=== PATIENT | male | born 1950 | race Asian ===

== ENCOUNTER 2022-07-07 14:48 | Inpatient (IN) | payer OTHER ==
[~2022-07-07] VITALS: Ht 162.6 cm; Wt 55.3 kg
[2022-07-07 15:00] VITALS: BP 138/91
[2022-07-07] MEDS ORDERED: DEXTROSE 50%-WATER 25 GM/50 ML SYRINGE IVP PRN (17:00)
[2022-07-07] MEDS ORDERED: PNEUMOCOCCAL VACCINE POLYVALENT 0.5 ML VIAL [PPSV23] IM. ONE (17:15)
[2022-07-07] MEDS: INSULIN LISPRO 100 UNITS/ML SQ PRN (18:30)
[2022-07-07 20:02] LABS: GLUCOMETER DEV NAME(LOC) 2WR.2B; GLUCOSE,POINT OF CARE 156 MG/DL (70-110)
[2022-07-07 20:12] VITALS: BP 138/87
[2022-07-07] MEDS: ATORVASTATIN CALCIUM 40 MG TABLET PO SCH (21:03)
[2022-07-07] MEDS: DOCUSATE SODIUM 100 MG CAPSULE PO SCH (21:03)
[2022-07-07] MEDS: SENNOSIDES 8.6 MG TABLET PO SCH (21:03)
[2022-07-07 21:11] LABS: GLUCOMETER DEV NAME(LOC) 2WR.1C; GLUCOSE,POINT OF CARE 159 MG/DL (70-110)
[2022-07-07] MEDS: ChlorproMAZINE HCL 25 MG TABLET PO PRN (21:15)
[2022-07-08 00:54] VITALS: BP 149/83
[2022-07-08] MEDS: HYDROCODONE/ACETAMINOPHEN 5-325 MG TABLET PO PRN (00:54)
[2022-07-08 07:01] LABS: BASOPHILS % (AUTO) 0.4 % (0.0-2.0); EOSINOPHILS % (AUTO) 1.7 % (1.0-6.0); HEMATOCRIT 45.9 % (41-53); HEMOGLOBIN 15.4 g/dL (13.5-17.5); LYMPHOCYTES # (AUTO) 1.8 K/uL (1.0-4.8); LYMPHOCYTES % (AUTO) 18.7 % (22.0-44.0); MEAN CORPUSCULAR HEMOGLOBIN 30.9 pg (26.0-34.0); MEAN CORPUSCULAR HGB CONC 33.5 G/dL (31.0-37.0); MEAN CORPUSCULAR VOLUME 92 fL (80-100); MONOCYTES % (AUTO) 10.2 % (2.0-9.0); NEUTROPHILS # (AUTO) 6.5 K/uL (1.8-7.7); PLATELET COUNT (AUTO) 222 K/uL (150-450); RED BLOOD CELL COUNT(AUTO) 4.99 MIL/uL (4.50-5.90); RED CELL DISTRIBUTION WIDTH 15.2 % (11.5-14.5)
[2022-07-08 07:13] LABS: ALANINE AMINOTRANSFERASE 24 U/L (12-78); ALKALINE PHOSPHATASE 75 U/L (46-116); ANION GAP 10 mmol/L (8-16); ASPARTATE AMINOTRANSFERASE 40 U/L (15-37); BILIRUBIN,TOTAL 0.9 mg/dL (0.1-1.0); CALCIUM, TOTAL 8.7 mg/dL (8.8-10.5); CARBON DIOXIDE 23 mmol/L (22-29); CHLORIDE 102 mmol/L (98-107); GLOMERULAR FILTR. RATE CALC > 60 mL/min (>60); GLUCOSE,RANDOM 152 mg/dL (70-110); POTASSIUM 4.4 mmol/L (3.5-5.1); SODIUM SERUM 135 mmol/L (136-145); TOTAL PROTEIN, SERUM 7.7 g/dL (6.4-8.2)
[2022-07-08] MEDS: DOCUSATE SODIUM 100 MG CAPSULE PO SCH ×3 (10:03→21:00)
[2022-07-08] MEDS: LISINOPRIL 20 MG TABLET PO SCH (10:03)
[2022-07-08] MEDS: CLOPIDOGREL BISULFATE 75 MG TABLET PO SCH (10:03)
[2022-07-08] MEDS: ASPIRIN 81 MG CHEWABLE TABLET PO SCH (10:04)
[2022-07-08] MEDS: INSULIN LISPRO 100 UNITS/ML SQ PRN ×2 (10:37→21:05)
[2022-07-08 12:51] LABS: GLUCOMETER DEV NAME(LOC) 2WR.1C; GLUCOSE,POINT OF CARE 169 MG/DL (70-110)
[2022-07-08 13:16] LABS: GLUCOMETER DEV NAME(LOC) 2WR.2B; GLUCOSE,POINT OF CARE 161 MG/DL (70-110)
[2022-07-08 15:21] VITALS: BP 126/79
[2022-07-08 18:01] LABS: GLUCOMETER DEV NAME(LOC) 2WR.2B; GLUCOSE,POINT OF CARE 135 MG/DL (70-110)
[2022-07-08 20:29] VITALS: BP 132/75
[2022-07-08] MEDS: SENNOSIDES 8.6 MG TABLET PO SCH (20:55)
[2022-07-08] MEDS: ATORVASTATIN CALCIUM 40 MG TABLET PO SCH (20:55)
[2022-07-08] MEDS: ONDANSETRON HCL 4 MG TABLET PO PRN (20:55)
[2022-07-08] MEDS: ETHYL ALCOHOL 62% ANTISEPTIC NASAL SANITIZER 0.6 ML AMPUL NASAL SCH (20:56)
[2022-07-08] MEDS: ChlorproMAZINE HCL 25 MG TABLET PO PRN (23:41)
[2022-07-08] MEDS: MELATONIN 3 MG TABLET PO PRN (23:41)
[2022-07-09 04:41] LABS: GLUCOMETER DEV NAME(LOC) 2WR.2B; GLUCOSE,POINT OF CARE 176 MG/DL (70-110)
[2022-07-09 06:46] LABS: GLUCOMETER DEV NAME(LOC) 2WR.2B; GLUCOSE,POINT OF CARE 177 MG/DL (70-110)
[2022-07-09 08:05] VITALS: BP 125/80
[2022-07-09] MEDS: ETHYL ALCOHOL 62% ANTISEPTIC NASAL SANITIZER 0.6 ML AMPUL NASAL SCH ×2 (08:18→20:49)
[2022-07-09] MEDS: DOCUSATE SODIUM 100 MG CAPSULE PO SCH ×3 (08:19→21:00)
[2022-07-09] MEDS: LISINOPRIL 20 MG TABLET PO SCH (08:19)
[2022-07-09] MEDS: ASPIRIN 81 MG CHEWABLE TABLET PO SCH (08:19)
[2022-07-09] MEDS: CLOPIDOGREL BISULFATE 75 MG TABLET PO SCH (08:19)
[2022-07-09] MEDS: INSULIN LISPRO 100 UNITS/ML SQ PRN ×3 (08:21→17:10)
[2022-07-09] MEDS: HYDROCODONE/ACETAMINOPHEN 5-325 MG TABLET PO PRN (08:25)
[2022-07-09 14:21] LABS: GLUCOMETER DEV NAME(LOC) 2WR.2B; GLUCOSE,POINT OF CARE 167 MG/DL (70-110)
[2022-07-09 18:41] LABS: GLUCOMETER DEV NAME(LOC) 2WR.1C; GLUCOSE,POINT OF CARE 141 MG/DL (70-110)
[2022-07-09 20:00] VITALS: BP 140/81
[2022-07-09] MEDS: ChlorproMAZINE HCL 25 MG TABLET PO PRN (20:48)
[2022-07-09] MEDS: MELATONIN 3 MG TABLET PO PRN (20:48)
[2022-07-09] MEDS: ATORVASTATIN CALCIUM 40 MG TABLET PO SCH (20:48)
[2022-07-09] MEDS: SENNOSIDES 8.6 MG TABLET PO SCH ×2 (20:48→21:00)
[2022-07-09 23:31] LABS: GLUCOMETER DEV NAME(LOC) 2WR.1C; GLUCOSE,POINT OF CARE 128 MG/DL (70-110)
[2022-07-09] MEDS ORDERED: LISI-894 PO (23:49)
[2022-07-09] MEDS ORDERED: ATOR10TA PO (23:49)
[2022-07-09] MEDS ORDERED: GLIP10TA10 PO (23:49)
[2022-07-09] MEDS ORDERED: METF-1211 PO (23:49)
[2022-07-09] MEDS ORDERED: CHOL200059 PO (23:49)
[2022-07-10] MEDS: POLYETHYLENE GLYCOL 3350 17 GM PACKET PO PRN ×2 (03:15→17:11)
[2022-07-10 04:34] VITALS: BP 163/95
[2022-07-10 05:14] VITALS: BP 127/63
[2022-07-10 07:11] LABS: GLUCOMETER DEV NAME(LOC) 2WR.2B; GLUCOSE,POINT OF CARE 191 MG/DL (70-110)
[2022-07-10 08:10] VITALS: BP 140/75
[2022-07-10] MEDS ORDERED: FAMOTIDINE 20 MG TABLET PO SCH (09:00)
[2022-07-10] MEDS: ETHYL ALCOHOL 62% ANTISEPTIC NASAL SANITIZER 0.6 ML AMPUL NASAL SCH ×2 (09:01→20:40)
[2022-07-10] MEDS: ASPIRIN 81 MG CHEWABLE TABLET PO SCH ×2 (09:01→15:16)
[2022-07-10] MEDS: CLOPIDOGREL BISULFATE 75 MG TABLET PO SCH ×2 (09:01→15:16)
[2022-07-10] MEDS: DOCUSATE SODIUM 100 MG CAPSULE PO SCH ×2 (09:01→20:41)
[2022-07-10] MEDS: LISINOPRIL 20 MG TABLET PO SCH (09:01)
[2022-07-10] MEDS: INSULIN LISPRO 100 UNITS/ML SQ PRN ×3 (09:04→17:09)
[2022-07-10 15:42] LABS: GLUCOMETER DEV NAME(LOC) 2WR.2B; GLUCOSE,POINT OF CARE 195 MG/DL (70-110)
[2022-07-10] MEDS: ONDANSETRON HCL 4 MG TABLET PO PRN (16:30)
[2022-07-10 17:22] LABS: GLUCOMETER DEV NAME(LOC) 2WR.1C; GLUCOSE,POINT OF CARE 149 MG/DL (70-110)
[2022-07-10 20:00] VITALS: BP 132/76
[2022-07-10] MEDS: ATORVASTATIN CALCIUM 40 MG TABLET PO SCH (20:41)
[2022-07-10] MEDS: MELATONIN 3 MG TABLET PO PRN (20:41)
[2022-07-10] MEDS: PANTOPRAZOLE SODIUM 40 MG DR TABLET PO SCH (20:41)
[2022-07-10] MEDS: SENNOSIDES 8.6 MG TABLET PO SCH (20:41)
[2022-07-10 21:32] LABS: GLUCOMETER DEV NAME(LOC) 2WR.1C; GLUCOSE,POINT OF CARE 132 MG/DL (70-110)
[2022-07-11 07:01] LABS: GLUCOMETER DEV NAME(LOC) 2WR.1C; GLUCOSE,POINT OF CARE 133 MG/DL (70-110)
[2022-07-11 07:47] LABS: BASOPHILS % (AUTO) 0.5 % (0.0-2.0); EOSINOPHILS % (AUTO) 4.3 % (1.0-6.0); HEMATOCRIT 44.4 % (41-53); HEMOGLOBIN 14.8 g/dL (13.5-17.5); LYMPHOCYTES # (AUTO) 1.6 K/uL (1.0-4.8); LYMPHOCYTES % (AUTO) 16.1 % (22.0-44.0); MEAN CORPUSCULAR HEMOGLOBIN 30.6 pg (26.0-34.0); MEAN CORPUSCULAR HGB CONC 33.4 G/dL (31.0-37.0); MEAN CORPUSCULAR VOLUME 92 fL (80-100); MONOCYTES % (AUTO) 10.6 % (2.0-9.0); NEUTROPHILS # (AUTO) 6.7 K/uL (1.8-7.7); NEUTROPHILS % (AUTO) 68.5 % (40.0-70.0); PLATELET COUNT (AUTO) 266 K/uL (150-450); RED BLOOD CELL COUNT(AUTO) 4.85 MIL/uL (4.50-5.90); RED CELL DISTRIBUTION WIDTH 14.5 % (11.5-14.5)
[2022-07-11 08:05] VITALS: BP 129/77
[2022-07-11 08:07] LABS: ANION GAP 9 mmol/L (8-16); CALCIUM, TOTAL 8.5 mg/dL (8.8-10.5); CARBON DIOXIDE 25 mmol/L (22-29); CHLORIDE 101 mmol/L (98-107); CREATININE 0.86 mg/dL (0.60-1.30); GLOMERULAR FILTR. RATE CALC > 60 mL/min (>60); GLUCOSE,RANDOM 145 mg/dL (70-110); SODIUM SERUM 135 mmol/L (136-145)
[2022-07-11] MEDS: DOCUSATE SODIUM 100 MG CAPSULE PO SCH ×3 (09:00→21:00)
[2022-07-11] MEDS: LISINOPRIL 20 MG TABLET PO SCH (09:00)
[2022-07-11] MEDS: ASPIRIN 81 MG CHEWABLE TABLET PO SCH (09:00)
[2022-07-11] MEDS: CLOPIDOGREL BISULFATE 75 MG TABLET PO SCH (09:00)
[2022-07-11] MEDS: PANTOPRAZOLE SODIUM 40 MG DR TABLET PO SCH ×2 (10:41→20:30)
[2022-07-11] MEDS: ETHYL ALCOHOL 62% ANTISEPTIC NASAL SANITIZER 0.6 ML AMPUL NASAL SCH ×2 (10:50→20:30)
[2022-07-11 12:36] LABS: GLUCOMETER DEV NAME(LOC) 2WR.2B; GLUCOSE,POINT OF CARE 149 MG/DL (70-110)
[2022-07-11 17:06] LABS: GLUCOMETER DEV NAME(LOC) 2WR.1C; GLUCOSE,POINT OF CARE 195 MG/DL (70-110)
[2022-07-11] MEDS: INSULIN LISPRO 100 UNITS/ML SQ PRN (17:10)
[2022-07-11] MEDS: SENNOSIDES 8.6 MG TABLET PO SCH ×2 (20:30→21:00)
[2022-07-11] MEDS: ATORVASTATIN CALCIUM 40 MG TABLET PO SCH ×2 (20:37→21:00)
[2022-07-11 21:00] VITALS: BP 134/77
[2022-07-11] MEDS: POLYETHYLENE GLYCOL 3350 17 GM PACKET PO PRN (21:25)
[2022-07-11] MEDS: MELATONIN 3 MG TABLET PO PRN (21:25)
[2022-07-11 21:55] LABS: GLUCOMETER DEV NAME(LOC) 2WR.1C; GLUCOSE,POINT OF CARE 130 MG/DL (70-110)
[2022-07-12 06:41] LABS: GLUCOMETER DEV NAME(LOC) 2WR.1C; GLUCOSE,POINT OF CARE 132 MG/DL (70-110)
[2022-07-12 08:12] VITALS: BP 137/84
[2022-07-12] MEDS: POLYETHYLENE GLYCOL 3350 17 GM PACKET PO SCH ×3 (08:26→21:38)
[2022-07-12] MEDS: ASPIRIN 81 MG CHEWABLE TABLET PO SCH (08:26)
[2022-07-12] MEDS: DOCUSATE SODIUM 100 MG CAPSULE PO SCH ×4 (08:26→21:38)
[2022-07-12] MEDS: CLOPIDOGREL BISULFATE 75 MG TABLET PO SCH (08:26)
[2022-07-12] MEDS: ETHYL ALCOHOL 62% ANTISEPTIC NASAL SANITIZER 0.6 ML AMPUL NASAL SCH ×2 (08:26→21:38)
[2022-07-12] MEDS: PANTOPRAZOLE SODIUM 40 MG DR TABLET PO SCH ×2 (08:26→21:38)
[2022-07-12] MEDS: LISINOPRIL 20 MG TABLET PO SCH (08:26)
[2022-07-12] MEDS: INSULIN LISPRO 100 UNITS/ML SQ PRN ×2 (13:01→22:04)
[2022-07-12 13:11] LABS: GLUCOMETER DEV NAME(LOC) 2WR.2B; GLUCOSE,POINT OF CARE 181 MG/DL (70-110)
[2022-07-12] MEDS ORDERED: IOHEXOL 350 MG/ML 100 ML VIAL ONE ×2 (16:26→18:18)
[2022-07-12] MEDS ORDERED: SODIUM CHLORIDE 0.9% 100 ML ONE (16:27)
[2022-07-12 17:06] LABS: GLUCOMETER DEV NAME(LOC) 2WR.1C; GLUCOSE,POINT OF CARE 117 MG/DL (70-110)
[2022-07-12 20:10] VITALS: BP 146/75
[2022-07-12] MEDS: ATORVASTATIN CALCIUM 40 MG TABLET PO SCH ×2 (21:00→21:38)
[2022-07-12] MEDS: SENNOSIDES 8.6 MG TABLET PO SCH ×2 (21:00→21:38)
[2022-07-12] MEDS: ONDANSETRON HCL 4 MG TABLET PO PRN (21:38)
[2022-07-12] MEDS: MELATONIN 3 MG TABLET PO PRN (21:41)
[2022-07-12 23:01] LABS: GLUCOMETER DEV NAME(LOC) 2WR.2B; GLUCOSE,POINT OF CARE 172 MG/DL (70-110)
[2022-07-13] MEDS: METHYLPHENIDATE HCL 10 MG TABLET PO SCH ×2 (06:46→12:23)
[2022-07-13 06:55] LABS: GLUCOMETER DEV NAME(LOC) 2WR.2B; GLUCOSE,POINT OF CARE 142 MG/DL (70-110)
[2022-07-13] MEDS: ASPIRIN 81 MG CHEWABLE TABLET PO SCH (08:31)
[2022-07-13] MEDS: CLOPIDOGREL BISULFATE 75 MG TABLET PO SCH (08:31)
[2022-07-13] MEDS: POLYETHYLENE GLYCOL 3350 17 GM PACKET PO SCH ×4 (08:31→21:00)
[2022-07-13] MEDS: DOCUSATE SODIUM 100 MG CAPSULE PO SCH ×2 (08:31→20:27)
[2022-07-13] MEDS: LISINOPRIL 20 MG TABLET PO SCH (08:32)
[2022-07-13] MEDS: ETHYL ALCOHOL 62% ANTISEPTIC NASAL SANITIZER 0.6 ML AMPUL NASAL SCH ×2 (08:32→20:27)
[2022-07-13] MEDS: PANTOPRAZOLE SODIUM 40 MG DR TABLET PO SCH ×2 (08:32→20:27)
[2022-07-13 08:49] VITALS: BP 123/70
[2022-07-13] MEDS: INSULIN LISPRO 100 UNITS/ML SQ PRN ×2 (12:22→18:55)
[2022-07-13 15:31] LABS: GLUCOMETER DEV NAME(LOC) 2WR.2B; GLUCOSE,POINT OF CARE 178 MG/DL (70-110)
[2022-07-13 16:46] LABS: GLUCOMETER DEV NAME(LOC) 2WR.1C; GLUCOSE,POINT OF CARE 182 MG/DL (70-110)
[2022-07-13 18:52] LABS: GLUCOMETER DEV NAME(LOC) 2WR.1C; GLUCOSE,POINT OF CARE 142 MG/DL (70-110)
[2022-07-13 20:10] VITALS: BP 123/73
[2022-07-13] MEDS: ATORVASTATIN CALCIUM 40 MG TABLET PO SCH (20:27)
[2022-07-13] MEDS: SENNOSIDES 8.6 MG TABLET PO SCH (20:27)
[2022-07-13] MEDS: MELATONIN 3 MG TABLET PO PRN (20:27)
[2022-07-13] MEDS: 0.9% SODIUM CHLORIDE 10 ML SYRINGE IVP SCH (20:42)
[2022-07-13 21:36] LABS: GLUCOMETER DEV NAME(LOC) 2WR.1C; GLUCOSE,POINT OF CARE 121 MG/DL (70-110)
[2022-07-14] MEDS: METHYLPHENIDATE HCL 10 MG TABLET PO SCH ×2 (06:10→11:59)
[2022-07-14 06:21] LABS: GLUCOMETER DEV NAME(LOC) 2WR.1C; GLUCOSE,POINT OF CARE 116 MG/DL (70-110)
[2022-07-14 08:05] VITALS: BP 134/75
[2022-07-14] MEDS: POLYETHYLENE GLYCOL 3350 17 GM PACKET PO SCH ×2 (08:31→20:27)
[2022-07-14] MEDS: LISINOPRIL 20 MG TABLET PO SCH (08:31)
[2022-07-14] MEDS: DOCUSATE SODIUM 100 MG CAPSULE PO SCH ×2 (08:31→20:28)
[2022-07-14] MEDS: PANTOPRAZOLE SODIUM 40 MG DR TABLET PO SCH ×2 (08:31→20:27)
[2022-07-14] MEDS: ETHYL ALCOHOL 62% ANTISEPTIC NASAL SANITIZER 0.6 ML AMPUL NASAL SCH ×2 (08:31→20:28)
[2022-07-14] MEDS: CLOPIDOGREL BISULFATE 75 MG TABLET PO SCH (08:31)
[2022-07-14] MEDS: ASPIRIN 81 MG CHEWABLE TABLET PO SCH (08:31)
[2022-07-14] MEDS: 0.9% SODIUM CHLORIDE 10 ML SYRINGE IVP SCH ×2 (09:07→20:28)
[2022-07-14] MEDS: ENOXAPARIN SODIUM 40 MG/0.4 ML PF SYRINGE SQ SCH (11:01)
[2022-07-14 11:51] LABS: GLUCOMETER DEV NAME(LOC) 2WR.2B; GLUCOSE,POINT OF CARE 174 MG/DL (70-110)
[2022-07-14] MEDS: INSULIN LISPRO 100 UNITS/ML SQ PRN ×2 (12:31→17:38)
[2022-07-14 16:55] LABS: GLUCOMETER DEV NAME(LOC) 2WR.1C; GLUCOSE,POINT OF CARE 191 MG/DL (70-110)
[2022-07-14] MEDS: DOCUSATE SODIUM 283 MG/5 ML MINI-ENEMA PR SCH (18:55)
[2022-07-14 20:10] VITALS: BP 135/86
[2022-07-14] MEDS: ATORVASTATIN CALCIUM 40 MG TABLET PO SCH (20:27)
[2022-07-14] MEDS: MELATONIN 3 MG TABLET PO PRN (20:27)
[2022-07-14] MEDS: SENNOSIDES 8.6 MG TABLET PO SCH (20:28)
[2022-07-14 21:01] LABS: GLUCOMETER DEV NAME(LOC) 2WR.2B; GLUCOSE,POINT OF CARE 62 MG/DL (70-110)
[2022-07-14 22:06] LABS: GLUCOMETER DEV NAME(LOC) 2WR.2B; GLUCOSE,POINT OF CARE 114 MG/DL (70-110)
[2022-07-15] MEDS: METHYLPHENIDATE HCL 10 MG TABLET PO SCH ×2 (06:26→11:45)
[2022-07-15 06:50] LABS: GLUCOMETER DEV NAME(LOC) 2WR.1C; GLUCOSE,POINT OF CARE 102 MG/DL (70-110)
[2022-07-15] MEDS: ENOXAPARIN SODIUM 40 MG/0.4 ML PF SYRINGE SQ SCH (07:48)
[2022-07-15] MEDS: POLYETHYLENE GLYCOL 3350 17 GM PACKET PO SCH ×2 (07:50→20:21)
[2022-07-15] MEDS: CLOPIDOGREL BISULFATE 75 MG TABLET PO SCH (07:52)
[2022-07-15] MEDS: LISINOPRIL 20 MG TABLET PO SCH (07:52)
[2022-07-15] MEDS: PANTOPRAZOLE SODIUM 40 MG DR TABLET PO SCH ×2 (07:52→20:21)
[2022-07-15] MEDS: ETHYL ALCOHOL 62% ANTISEPTIC NASAL SANITIZER 0.6 ML AMPUL NASAL SCH ×2 (07:54→20:19)
[2022-07-15] MEDS: DOCUSATE SODIUM 100 MG CAPSULE PO SCH ×2 (07:55→20:18)
[2022-07-15 08:05] VITALS: BP 138/88
[2022-07-15] MEDS: 0.9% SODIUM CHLORIDE 10 ML SYRINGE IVP SCH (09:00)
[2022-07-15] MEDS ORDERED: ASPIRIN 81 MG CHEWABLE TABLET PO SCH (09:00)
[2022-07-15] MEDS: ASPIRIN 325 MG TABLET PO SCH (09:10)
[2022-07-15] MEDS: ACETAMINOPHEN 325 MG TABLET PO PRN (09:21)
[2022-07-15 11:51] LABS: GLUCOMETER DEV NAME(LOC) 2WR.2B; GLUCOSE,POINT OF CARE 140 MG/DL (70-110)
[2022-07-15] MEDS: INSULIN LISPRO 100 UNITS/ML SQ PRN (17:36)
[2022-07-15 17:51] LABS: GLUCOMETER DEV NAME(LOC) 2WR.1C; GLUCOSE,POINT OF CARE 166 MG/DL (70-110)
[2022-07-15] MEDS: DOCUSATE SODIUM 283 MG/5 ML MINI-ENEMA PR SCH (18:01)
[2022-07-15] MEDS: ATORVASTATIN CALCIUM 40 MG TABLET PO SCH (20:18)
[2022-07-15] MEDS: MELATONIN 3 MG TABLET PO PRN (20:18)
[2022-07-15] MEDS: SENNOSIDES 8.6 MG TABLET PO SCH (20:18)
[2022-07-15 20:30] VITALS: BP 133/64
[2022-07-15 21:51] LABS: GLUCOMETER DEV NAME(LOC) 2WR.2B; GLUCOSE,POINT OF CARE 104 MG/DL (70-110)
[2022-07-16] MEDS: ACETAMINOPHEN 325 MG TABLET PO PRN (02:13)
[2022-07-16] MEDS: METHYLPHENIDATE HCL 10 MG TABLET PO SCH ×2 (05:59→11:58)
[2022-07-16 08:05] VITALS: BP 136/78
[2022-07-16] MEDS: POLYETHYLENE GLYCOL 3350 17 GM PACKET PO SCH ×2 (08:40→21:40)
[2022-07-16] MEDS: DOCUSATE SODIUM 100 MG CAPSULE PO SCH ×2 (08:40→21:40)
[2022-07-16] MEDS: ETHYL ALCOHOL 62% ANTISEPTIC NASAL SANITIZER 0.6 ML AMPUL NASAL SCH ×2 (08:40→21:39)
[2022-07-16] MEDS: ASPIRIN 325 MG TABLET PO SCH (08:40)
[2022-07-16] MEDS: LISINOPRIL 20 MG TABLET PO SCH (08:41)
[2022-07-16] MEDS: CLOPIDOGREL BISULFATE 75 MG TABLET PO SCH (08:41)
[2022-07-16] MEDS: ENOXAPARIN SODIUM 40 MG/0.4 ML PF SYRINGE SQ SCH (08:41)
[2022-07-16] MEDS: PANTOPRAZOLE SODIUM 40 MG DR TABLET PO SCH ×2 (08:41→21:40)
[2022-07-16 12:31] LABS: GLUCOMETER DEV NAME(LOC) 2WR.1C; GLUCOSE,POINT OF CARE 100 MG/DL (70-110)
[2022-07-16 12:31] LABS: GLUCOMETER DEV NAME(LOC) 2WR.2B; GLUCOSE,POINT OF CARE 133 MG/DL (70-110)
[2022-07-16] MEDS: INSULIN LISPRO 100 UNITS/ML SQ PRN (16:54)
[2022-07-16 17:57] LABS: GLUCOMETER DEV NAME(LOC) 2WR.2B; GLUCOSE,POINT OF CARE 182 MG/DL (70-110)
[2022-07-16] MEDS: DOCUSATE SODIUM 283 MG/5 ML MINI-ENEMA PR SCH (18:45)
[2022-07-16 21:00] VITALS: BP 122/49
[2022-07-16] MEDS: SENNOSIDES 8.6 MG TABLET PO SCH (21:40)
[2022-07-16] MEDS: ATORVASTATIN CALCIUM 40 MG TABLET PO SCH (21:40)
[2022-07-16] MEDS: MELATONIN 3 MG TABLET PO PRN (21:41)
[2022-07-16 23:46] LABS: GLUCOMETER DEV NAME(LOC) 2WR.1C; GLUCOSE,POINT OF CARE 106 MG/DL (70-110)
[2022-07-17] MEDS: ACETAMINOPHEN 325 MG TABLET PO PRN ×3 (00:15→17:18)
[2022-07-17] MEDS: METHYLPHENIDATE HCL 10 MG TABLET PO SCH ×2 (06:36→11:41)
[2022-07-17 07:06] LABS: GLUCOMETER DEV NAME(LOC) 2WR.1C; GLUCOSE,POINT OF CARE 117 MG/DL (70-110)
[2022-07-17] MEDS: POLYETHYLENE GLYCOL 3350 17 GM PACKET PO SCH ×2 (08:33→21:03)
[2022-07-17] MEDS: PANTOPRAZOLE SODIUM 40 MG DR TABLET PO SCH ×2 (08:34→21:03)
[2022-07-17] MEDS: ASPIRIN 325 MG TABLET PO SCH (08:34)
[2022-07-17] MEDS: LISINOPRIL 20 MG TABLET PO SCH (08:34)
[2022-07-17] MEDS: CLOPIDOGREL BISULFATE 75 MG TABLET PO SCH (08:34)
[2022-07-17] MEDS: DOCUSATE SODIUM 100 MG CAPSULE PO SCH ×2 (08:34→21:03)
[2022-07-17] MEDS: ETHYL ALCOHOL 62% ANTISEPTIC NASAL SANITIZER 0.6 ML AMPUL NASAL SCH ×2 (08:34→21:04)
[2022-07-17] MEDS: ENOXAPARIN SODIUM 40 MG/0.4 ML PF SYRINGE SQ SCH (08:35)
[2022-07-17 08:46] VITALS: BP 118/70
[2022-07-17] MEDS: INSULIN LISPRO 100 UNITS/ML SQ PRN ×2 (12:32→21:20)
[2022-07-17 13:05] LABS: GLUCOMETER DEV NAME(LOC) 2WR.1C; GLUCOSE,POINT OF CARE 203 MG/DL (70-110)
[2022-07-17 17:36] LABS: GLUCOMETER DEV NAME(LOC) 2WR.1C; GLUCOSE,POINT OF CARE 126 MG/DL (70-110)
[2022-07-17 19:59] VITALS: BP 110/75
[2022-07-17] MEDS: TraZODone HCL 50 MG TABLET PO SCH (21:03)
[2022-07-17] MEDS: ATORVASTATIN CALCIUM 40 MG TABLET PO SCH (21:03)
[2022-07-17] MEDS: SENNOSIDES 8.6 MG TABLET PO SCH (21:03)
[2022-07-17 21:26] LABS: GLUCOMETER DEV NAME(LOC) 2WR.1C; GLUCOSE,POINT OF CARE 201 MG/DL (70-110)
[2022-07-18] MEDS: METHYLPHENIDATE HCL 10 MG TABLET PO SCH ×2 (06:01→12:56)
[2022-07-18 06:56] LABS: GLUCOMETER DEV NAME(LOC) 2WR.1C; GLUCOSE,POINT OF CARE 157 MG/DL (70-110)
[2022-07-18 08:30] VITALS: BP 95/73
[2022-07-18] MEDS: INSULIN LISPRO 100 UNITS/ML SQ PRN ×3 (08:35→20:36)
[2022-07-18] MEDS: ENOXAPARIN SODIUM 40 MG/0.4 ML PF SYRINGE SQ SCH (08:38)
[2022-07-18] MEDS: PANTOPRAZOLE SODIUM 40 MG DR TABLET PO SCH ×2 (08:38→20:33)
[2022-07-18] MEDS: CLOPIDOGREL BISULFATE 75 MG TABLET PO SCH (08:38)
[2022-07-18] MEDS: ETHYL ALCOHOL 62% ANTISEPTIC NASAL SANITIZER 0.6 ML AMPUL NASAL SCH ×2 (08:38→20:46)
[2022-07-18] MEDS: DOCUSATE SODIUM 100 MG CAPSULE PO SCH ×2 (08:38→20:32)
[2022-07-18] MEDS: LISINOPRIL 20 MG TABLET PO SCH ×2 (08:38→09:00)
[2022-07-18] MEDS: ASPIRIN 325 MG TABLET PO SCH (08:38)
[2022-07-18] MEDS: POLYETHYLENE GLYCOL 3350 17 GM PACKET PO SCH ×2 (08:46→20:33)
[2022-07-18 11:10] VITALS: BP 106/69
[2022-07-18 12:41] LABS: GLUCOMETER DEV NAME(LOC) 2WR.2B; GLUCOSE,POINT OF CARE 177 MG/DL (70-110)
[2022-07-18] MEDS: MetFORMIN HCL 500 MG TABLET PO SCH (17:40)
[2022-07-18 18:01] LABS: GLUCOMETER DEV NAME(LOC) 2WR.1C; GLUCOSE,POINT OF CARE 101 MG/DL (70-110)
[2022-07-18] MEDS: SENNOSIDES 8.6 MG TABLET PO SCH (20:32)
[2022-07-18] MEDS: TraZODone HCL 50 MG TABLET PO SCH (20:33)
[2022-07-18] MEDS: ATORVASTATIN CALCIUM 40 MG TABLET PO SCH (20:33)
[2022-07-18 21:00] VITALS: BP 124/69
[2022-07-18 21:56] LABS: GLUCOMETER DEV NAME(LOC) 2WR.2B; GLUCOSE,POINT OF CARE 142 MG/DL (70-110)
[2022-07-19] MEDS: METHYLPHENIDATE HCL 10 MG TABLET PO SCH ×2 (06:39→14:22)
[2022-07-19 06:49] LABS: BASOPHILS % (AUTO) 0.7 % (0.0-2.0); EOSINOPHILS % (AUTO) 12.2 % (1.0-6.0); HEMATOCRIT 43.6 % (41-53); HEMOGLOBIN 14.8 g/dL (13.5-17.5); LYMPHOCYTES # (AUTO) 1.4 K/uL (1.0-4.8); LYMPHOCYTES % (AUTO) 17.6 % (22.0-44.0); MEAN CORPUSCULAR HGB CONC 33.9 G/dL (31.0-37.0); MEAN CORPUSCULAR VOLUME 92 fL (80-100); MONOCYTES # (AUTO) 0.7 K/uL (0.1-1.0); MONOCYTES % (AUTO) 9.3 % (2.0-9.0); NEUTROPHILS # (AUTO) 4.8 K/uL (1.8-7.7); NEUTROPHILS % (AUTO) 60.2 % (40.0-70.0); PLATELET COUNT (AUTO) 285 K/uL (150-450); RED BLOOD CELL COUNT(AUTO) 4.77 MIL/uL (4.50-5.90); RED CELL DISTRIBUTION WIDTH 14.8 % (11.5-14.5)
[2022-07-19 06:59] LABS: ANION GAP 9 mmol/L (8-16); CALCIUM, TOTAL 8.4 mg/dL (8.8-10.5); CARBON DIOXIDE 26 mmol/L (22-29); CHLORIDE 104 mmol/L (98-107); CREATININE 0.95 mg/dL (0.60-1.30); GLOMERULAR FILTR. RATE CALC > 60 mL/min (>60); GLUCOSE,RANDOM 171 mg/dL (70-110); POTASSIUM 4.2 mmol/L (3.5-5.1); SODIUM SERUM 139 mmol/L (136-145)
[2022-07-19] MEDS: MetFORMIN HCL 500 MG TABLET PO SCH ×2 (07:30→17:39)
[2022-07-19 07:46] LABS: GLUCOMETER DEV NAME(LOC) 2WR.2B; GLUCOSE,POINT OF CARE 143 MG/DL (70-110)
[2022-07-19] MEDS: ETHYL ALCOHOL 62% ANTISEPTIC NASAL SANITIZER 0.6 ML AMPUL NASAL SCH ×2 (08:35→19:47)
[2022-07-19] MEDS: ENOXAPARIN SODIUM 40 MG/0.4 ML PF SYRINGE SQ SCH (08:35)
[2022-07-19] MEDS: ASPIRIN 325 MG TABLET PO SCH (08:35)
[2022-07-19] MEDS: ACETAMINOPHEN 325 MG TABLET PO PRN ×2 (08:36→14:03)
[2022-07-19] MEDS: PANTOPRAZOLE SODIUM 40 MG DR TABLET PO SCH ×2 (08:36→19:47)
[2022-07-19] MEDS: LISINOPRIL 20 MG TABLET PO SCH (08:36)
[2022-07-19] MEDS: DOCUSATE SODIUM 100 MG CAPSULE PO SCH ×2 (08:36→19:47)
[2022-07-19] MEDS: CLOPIDOGREL BISULFATE 75 MG TABLET PO SCH (08:36)
[2022-07-19 08:40] VITALS: BP 114/80
[2022-07-19] MEDS: POLYETHYLENE GLYCOL 3350 17 GM PACKET PO SCH ×2 (09:00→19:47)
[2022-07-19 12:51] LABS: GLUCOMETER DEV NAME(LOC) 2WR.1C; GLUCOSE,POINT OF CARE 150 MG/DL (70-110)
[2022-07-19] MEDS: INSULIN LISPRO 100 UNITS/ML SQ PRN ×2 (14:10→20:23)
[2022-07-19 18:12] LABS: GLUCOMETER DEV NAME(LOC) 2WR.2B; GLUCOSE,POINT OF CARE 94 MG/DL (70-110)
[2022-07-19 19:46] VITALS: BP 123/71
[2022-07-19] MEDS: SENNOSIDES 8.6 MG TABLET PO SCH (19:47)
[2022-07-19] MEDS: ATORVASTATIN CALCIUM 40 MG TABLET PO SCH (19:47)
[2022-07-19] MEDS: TraZODone HCL 50 MG TABLET PO SCH (19:48)
[2022-07-19 22:26] LABS: GLUCOMETER DEV NAME(LOC) 2WR.2B; GLUCOSE,POINT OF CARE 152 MG/DL (70-110)
[2022-07-20] MEDS: METHYLPHENIDATE HCL 10 MG TABLET PO SCH ×2 (06:21→11:05)
[2022-07-20] MEDS: ACETAMINOPHEN 325 MG TABLET PO PRN ×3 (06:21→21:10)
[2022-07-20 07:01] LABS: GLUCOMETER DEV NAME(LOC) 2WR.2B; GLUCOSE,POINT OF CARE 115 MG/DL (70-110)
[2022-07-20 08:05] VITALS: BP 124/83
[2022-07-20] MEDS: ASPIRIN 325 MG TABLET PO SCH (08:22)
[2022-07-20] MEDS: MetFORMIN HCL 500 MG TABLET PO SCH ×2 (08:22→16:44)
[2022-07-20] MEDS: DOCUSATE SODIUM 100 MG CAPSULE PO SCH ×2 (08:22→21:05)
[2022-07-20] MEDS: ETHYL ALCOHOL 62% ANTISEPTIC NASAL SANITIZER 0.6 ML AMPUL NASAL SCH ×2 (08:22→21:05)
[2022-07-20] MEDS: LISINOPRIL 20 MG TABLET PO SCH (08:23)
[2022-07-20] MEDS: POLYETHYLENE GLYCOL 3350 17 GM PACKET PO SCH ×2 (08:23→21:07)
[2022-07-20] MEDS: CLOPIDOGREL BISULFATE 75 MG TABLET PO SCH (08:23)
[2022-07-20] MEDS: PANTOPRAZOLE SODIUM 40 MG DR TABLET PO SCH ×2 (08:23→21:06)
[2022-07-20] MEDS: ENOXAPARIN SODIUM 40 MG/0.4 ML PF SYRINGE SQ SCH (08:23)
[2022-07-20 17:51] LABS: GLUCOMETER DEV NAME(LOC) 2WR.1C; GLUCOSE,POINT OF CARE 153 MG/DL (70-110)
[2022-07-20 17:51] LABS: GLUCOMETER DEV NAME(LOC) 2WR.1C; GLUCOSE,POINT OF CARE 118 MG/DL (70-110)
[2022-07-20] MEDS: INSULIN LISPRO 100 UNITS/ML SQ PRN (18:21)
[2022-07-20 20:26] LABS: GLUCOMETER DEV NAME(LOC) 2WR.2B; GLUCOSE,POINT OF CARE 136 MG/DL (70-110)
[2022-07-20] MEDS: SENNOSIDES 8.6 MG TABLET PO SCH (21:05)
[2022-07-20] MEDS: TraZODone HCL 50 MG TABLET PO SCH (21:06)
[2022-07-20] MEDS: ATORVASTATIN CALCIUM 40 MG TABLET PO SCH (21:06)
[2022-07-21] MEDS: METHYLPHENIDATE HCL 10 MG TABLET PO SCH ×2 (06:23→11:05)
[2022-07-21 06:51] LABS: GLUCOMETER DEV NAME(LOC) 2WR.2B; GLUCOSE,POINT OF CARE 104 MG/DL (70-110)
[2022-07-21 08:15] VITALS: BP 118/88
[2022-07-21] MEDS: MetFORMIN HCL 500 MG TABLET PO SCH (08:31)
[2022-07-21] MEDS: DOCUSATE SODIUM 100 MG CAPSULE PO SCH (08:31)
[2022-07-21] MEDS: ETHYL ALCOHOL 62% ANTISEPTIC NASAL SANITIZER 0.6 ML AMPUL NASAL SCH (08:31)
[2022-07-21] MEDS: ASPIRIN 325 MG TABLET PO SCH (08:31)
[2022-07-21] MEDS: POLYETHYLENE GLYCOL 3350 17 GM PACKET PO SCH (08:32)
[2022-07-21] MEDS: ENOXAPARIN SODIUM 40 MG/0.4 ML PF SYRINGE SQ SCH (08:32)
[2022-07-21] MEDS: CLOPIDOGREL BISULFATE 75 MG TABLET PO SCH (08:32)
[2022-07-21] MEDS: LISINOPRIL 20 MG TABLET PO SCH (08:32)
[2022-07-21] MEDS: PANTOPRAZOLE SODIUM 40 MG DR TABLET PO SCH (08:32)
[2022-07-21] MEDS: INSULIN LISPRO 100 UNITS/ML SQ PRN (11:51)
[2022-07-21 14:41] LABS: GLUCOMETER DEV NAME(LOC) 2WR.2B; GLUCOSE,POINT OF CARE 195 MG/DL (70-110)
[2022-07-21 16:46] VITALS: BP 110/67
== END 2022-07-21 17:00 | DRG 57 ==
LOC: 2WR 14:48
PROVIDERS: ADMIT Physical Medicine & Rehabilitation; ATTEND Physical Medicine & Rehabilitation
PROC: 3E0234Z Introduction of Serum, Toxoid and Vaccine into Muscle, Percutaneous Approach (ICD-10-PCS; principal; 2022-07-07)
DX: I69.354 Hemiplegia and hemiparesis following cerebral infarction affecting left non-dominant side (principal); E87.1 Hypo-osmolality and hyponatremia; I50.20 Unspecified systolic (congestive) heart failure; R41.4 Neurologic neglect syndrome; I11.0 Hypertensive heart disease with heart failure; E78.5 Hyperlipidemia, unspecified; E11.9 Type 2 diabetes mellitus without complications; F32.A Depression, unspecified; G47.00 Insomnia, unspecified; I25.10 Atherosclerotic heart disease of native coronary artery without angina pectoris; S62.304A Unspecified fracture of fourth metacarpal bone, right hand, initial encounter for closed fracture; S62.306A Unspecified fracture of fifth metacarpal bone, right hand, initial encounter for closed fracture; W18.39XA Other fall on same level, initial encounter; R13.10 Dysphagia, unspecified; K21.9 Gastro-esophageal reflux disease without esophagitis; K59.00 Constipation, unspecified; Z83.3 Family history of diabetes mellitus; Z87.891 Personal history of nicotine dependence; Z91.199 Patient's noncompliance with other medical treatment and regimen due to unspecified reason; Z95.0 Presence of cardiac pacemaker; Y93.89 Activity, other specified; Y92.89 Other specified places as the place of occurrence of the external cause; Y99.8 Other external cause status; I69.391 Dysphagia following cerebral infarction; I69.322 Dysarthria following cerebral infarction; I69.319 Unspecified symptoms and signs involving cognitive functions following cerebral infarction
CPT/HCPCS: 70450; 70496; 70498; 70551; 71046; 74018; 74230; 80048; 80053; 82962; 85025; 87081; 90732; 92507; 92523; 92526; 92610; 92611; 93970; 97112; 97150; 97163; 97167; 97530; 97535; 99285; 99366; J1650; J7050; Q0162; Q9967; 36415-L1; 36415-TC

== ENCOUNTER 2023-10-26 15:50 | Emergency (ER) | payer MEDICARE, MEDICAID ==
[~2023-10-26] VITALS: Ht 162.6 cm; Wt 53.6 kg
[~2023-10-26 15:50] MED LIST: ATOR10TA PO; CHOL200059 PO; GLIP10TA10 PO; LISI-894 PO; METF-1211 PO
[2023-10-26 16:31] VITALS: TEMP 98.2
[2023-10-26] MEDS: SODIUM CHLORIDE 0.9% 1,000 ML IV ONE (16:51)
[2023-10-26 17:18] LABS: BASOPHILS % (AUTO) 0.3 % (0.0-2.0); EOSINOPHILS % (AUTO) 9.6 % (1.0-6.0); HEMOGLOBIN 18.7 g/dL (13.5-17.5); LYMPHOCYTES # (AUTO) 1.3 K/uL (1.0-4.8); LYMPHOCYTES % (AUTO) 12.5 % (22.0-44.0); MEAN CORPUSCULAR HEMOGLOBIN 30.2 pg (26.0-34.0); MEAN CORPUSCULAR VOLUME 91 fL (80-100); MONOCYTES # (AUTO) 0.6 K/uL (0.1-1.0); MONOCYTES % (AUTO) 5.4 % (2.0-9.0); NEUTROPHILS # (AUTO) 7.6 K/uL (1.8-7.7); NEUTROPHILS % (AUTO) 72.2 % (40.0-70.0); PLATELET COUNT (AUTO) 251 K/uL (150-450); RED BLOOD CELL COUNT(AUTO) 6.18 MIL/uL (4.50-5.90); RED CELL DISTRIBUTION WIDTH 14.9 % (11.5-14.5); WHITE BLOOD COUNT (AUTO) 10.6 K/uL (4.5-11.0)
[2023-10-26 17:20] LABS: HEMATOCRIT 56.5 % (41-53)
[2023-10-26 17:22] LABS: CALCIUM, TOTAL 8.9 mg/dL (8.8-10.5); CREATININE 1.4 mg/dL (0.60-1.30); POTASSIUM 4.4 mmol/L (3.5-5.1)
[2023-10-26 17:29] LABS: ALBUMIN 3.6 g/dL (3.4-5.0); BILIRUBIN,TOTAL 0.8 mg/dL (0.1-1.0); TOTAL PROTEIN, SERUM 8.3 g/dL (6.4-8.2)
[2023-10-26 17:30] LABS: TROPONIN I-HIGH SENSITIVITY 22 ng/L (<76)
[2023-10-26 18:11] LABS: GLUCOMETER DEV NAME(LOC) ERT.5; GLUCOSE,POINT OF CARE 183 MG/DL (70-110)
[2023-10-26 21:57] LABS: TROPONIN I-HIGH SENSITIVITY 22 ng/L (<76)
[2023-10-26 22:40] VITALS: BP 132/81; PULSE 95; RESP 16; O2SAT 98
== END 2023-10-27 02:17 | disposition home or self-care (01) ==
LOC: EMS 15:50
DX: T67.9XXA Effect of heat and light, unspecified, initial encounter (principal); I69.30 Unspecified sequelae of cerebral infarction; E11.9 Type 2 diabetes mellitus without complications; Z95.0 Presence of cardiac pacemaker; Z98.890 Other specified postprocedural states; X58.XXXA Exposure to other specified factors, initial encounter; Y93.89 Activity, other specified; Y92.89 Other specified places as the place of occurrence of the external cause; Y99.8 Other external cause status
CPT/HCPCS: 99285; 96360; 71045; 80053; 82550; 82962; 83690; 83880; 84484; 85025; 36415; 93005; J7030